=== PATIENT | male | born 1970 | race Caucasian/White ===

== ENCOUNTER 2017-10-10 10:34 | Emergency (ER) | payer OTHER ==
[~2017-10-10] VITALS: Ht 180.3 cm; Wt 81.2 kg
[2017-10-10 12:43] LABS: HEMATOCRIT 40.7 % (38.0-50.0); HEMOGLOBIN 12.6 G/DL (12.5-16.6); MCH 25.7 PG (29.0-34.0); MCV 83.1 FL (86-99); PLATELET COUNT 251 K/uL (156-360); RBC DIS.WIDTH-CV 17.1 % (11.8-14.6); RBC DIS.WIDTH-SD 51.6 % (39-53); WHITE BLOOD COUNT 5.4 K/uL (4.1-10.2)
[2017-10-10 12:53] LABS: CHLORIDE 107 mEq/L (99-109); POTASSIUM 4.5 mEq/L (3.7-5.4); SODIUM 139 mEq/L (136-147)
[2017-10-10 12:55] LABS: GLUCOSE 85 mg/dL (70-99)
[2017-10-10 12:59] LABS: CREATININE 0.8 mg/dL (0.6-1.3); GFR ESTIMATE (CALCULATED) > 59 mL/min/ (58.99-99999)
[2017-10-10 13:00] LABS: UREA NITROGEN (BUN) 19 mg/dL (9-23)
[2017-10-10] MEDS ORDERED: DOXYCYCLINE MO100 MG PO (15:44)
[2017-10-10] MEDS ORDERED: NORCO 5/3251 TABLET PO (16:09)
[2017-10-10 16:19] VITALS: BP 142/86
== END 2017-10-10 16:20 | disposition home or self-care (01) ==
LOC: EME 10:34
PROVIDERS: Nurse Practitioner Family
DX: L03.116 Cellulitis of left lower limb (principal); Z86.14 Personal history of Methicillin resistant Staphylococcus aureus infection; F17.200 Nicotine dependence, unspecified, uncomplicated
CPT/HCPCS: 73701; 80048; 85027; 87070; 87075; 87077; 87186; 87205; 99281; 99284; J2270; J7040